=== PATIENT | female | born 1935 | race Caucasian/White ===

== ENCOUNTER 2022-02-02 15:38 | Inpatient (IN) | payer OTHER ==
[2022-02-02] MEDS ORDERED: SODIUM CHLORIDE 1,633 ML IV ONE (16:44)
[2022-02-02] MEDS ORDERED: ACETAMINOPHEN 1000 MG/100 ML BAG IVPB ONE (17:30)
[2022-02-02] MEDS ORDERED: VANCOMYCIN 1 GM in D5W (PRE-DOCKED) 1,000 MG/250 ML IVPB ONE (18:00)
[2022-02-02] MEDS ORDERED: PIPERACILLIN/TAZOB 4.5 GM 4.5 GM in DEXTROSE 5%-WATER 100 ML IVPB ONE (18:01)
[2022-02-02] MEDS ORDERED: ACETAMINOPHEN INJECTION 100 ML IVPB ONE (18:24)
[2022-02-02] MEDS ORDERED: VANCOMYCIN/WATER FOR INJ (PEG) 1,000 MG/200 ML BAG IVPB ONE (18:24)
[2022-02-02 18:26] LABS: HEMOGLOBIN 11.1 GM/dL (10.7-15.3); MCH 28.1 pg (25.7-33.7); MCHC 33.6 g/dl (32.0-36.0); MEAN CELL VOLUME 83.9 fl (80-96); MEAN PLT VOLUME 8.5 fl (7.5-11.1); PLATELET COUNT 380 10^3/uL (134-434); RBC 3.94 M/mm3 (3.60-5.2); RDW 18.1 % (11.6-15.6); WHITE BLOOD COUNT 3.7 K/mm3 (4.0-10.0)
[2022-02-02 18:35] LABS: INR 1.16 (0.83-1.09); PROTHROMBIN TIME (PATIENT) 13.4 SEC (9.7-13.0)
[2022-02-02 18:37] LABS: VENOUS BASE EXCESS -5.7 mmol/L (-2-2); VENOUS O2 SATURATION 56.3 % (70-80); VENOUS PCO2 35.8 mmHg (38-52); VENOUS PH 7.349 (7.310-7.410)
[2022-02-02 18:38] LABS: ACTIVATED PTT 28.7 SECONDS (25.2-36.5)
[2022-02-02 18:56] LABS: CALCIUM 8.2 mg/dL (8.5-10.1)
[2022-02-02 19:02] LABS: BILIRUBIN,TOTAL 0.8 mg/dL (0.2-1); TOT PROT 5.7 g/dl (6.4-8.2)
[2022-02-02] MEDS ORDERED: PIPERACILLIN/TAZOB 4.5 GM 4.5 GM/100 ML BAG IVPB ONE (19:17)
[2022-02-02 19:23] LABS: ANISOCYTOSIS 2+; MACROCYTOSIS 0; OVALOCYTE 1+
[2022-02-03] MEDS ORDERED: D5-1/2NS+20 MEQ KCL - 20 MEQ/1,000 ML INFUS.BAG IV SCH (03:45)
[2022-02-03] MEDS ORDERED: oxyCODONE HCL 5 MG TABLET PO PRN (03:55)
[2022-02-03] MEDS ORDERED: SENNOSIDES 8.6MG TABLET (FP) PO PRN (03:55)
[2022-02-03] MEDS ORDERED: POLYETHYLENE GLYCOL (HEALTHYLAX) 3350 17 GM PACKET PO PRN (03:55)
[2022-02-03] MEDS ORDERED: PIPERACILLIN/TAZOB 2.25 GM 2.25 GM in DEXTROSE 5%-WATER - 50 ML IVPB SCH (04:30)
[2022-02-03] MEDS ORDERED: METOPROLOL TARTRATE 25 MG TABLET (FP) ONE (04:35)
[2022-02-03] MEDS ORDERED: diphenhydrAMINE HCL 25 MG CAPSULE (FP) PO ONE (04:35)
[2022-02-03] MEDS ORDERED: PIPERACILLIN/TAZOB 2.25 GM 2.25 GM/50 ML BAG IVPB ONE (04:36)
[2022-02-03] MEDS ORDERED: VANCOMYCIN 500 MG in DEXTROSE 5%-WATER 100 ML IVPB SCH ×3 (04:45→23:45)
[2022-02-03] MEDS: METOPROLOL TARTRATE 25 MG TABLET (FP) PO SCH ×3 (05:04→22:11)
[2022-02-03] MEDS: PIPERACILLIN/TAZOB 2.25 GM 2.25 GM in DEXTROSE 5%-WATER - 50 ML IVPB SCH ×3 (05:04→17:54)
[2022-02-03 06:02] LABS: EPI CELLS >36 /uL (0-25.1); HYALINE CASTS 12 /uL (0-3.1); PH,URINE 5.5 (5.0-8.0); URINE APPEARANCE CLOUDY; URINE BACTERIA 135 /uL (0-1359); URINE BILIRUBIN NEGATIVE (NEGATIVE); URINE COLOR YELLOW; URINE GLUCOSE (UA) NEGATIVE (NEGATIVE); URINE KETONE NEGATIVE (NEGATIVE); URINE LEUK ESTERASE 1+ (NEGATIVE); URINE NITRITE NEGATIVE (NEGATIVE); URINE PROTEIN 1+ (NEGATIVE); URINE UROBILINOGEN 0.2 mg/dL (0.2-1.0); URINE WBC 399 /uL (0-25.8)
[2022-02-03 07:27] LABS: URINE RBC 773 /uL (0-23.9); YEAST NEGATIVE (NEGATIVE)
[2022-02-03] MEDS: DEXTROSE 5%-0.45% SALINE 1,000 ML IV SCH (10:07)
[2022-02-03] MEDS: diphenhydrAMINE HCL 25 MG CAPSULE (FP) PO SCH ×3 (10:09→22:12)
[2022-02-03] MEDS: HEPARIN NA (PORCINE) 5,000 UNITS/ML 1ML VIAL SQ SCH ×3 (10:09→22:11)
[2022-02-03] MEDS ORDERED: SODIUM CHLORIDE 1,000 ML IV SCH (11:30)
[2022-02-03] MEDS: COLLAGENASE CLOSTRIDIUM HIST. 30 GRAMS TUBE TP SCH (14:00)
[2022-02-03] MEDS ORDERED: VANCOMYCIN 1 GM in D5W (PRE-DOCKED) 1,000 MG/250 ML IVPB SCH (22:00)
[2022-02-03] MEDS: CEFEPIME 1 GM in DEXTROSE 5%-WATER 100 ML IVPB SCH (22:14)
[2022-02-04] MEDS: diphenhydrAMINE HCL 25 MG CAPSULE (FP) PO SCH ×3 (05:58→22:08)
[2022-02-04] MEDS: HEPARIN NA (PORCINE) 5,000 UNITS/ML 1ML VIAL SQ SCH ×3 (05:58→22:08)
[2022-02-04] MEDS: DEXTROSE 5%-0.45% SALINE 1,000 ML IV SCH (05:59)
[2022-02-04 07:40] LABS: HEMOGLOBIN 9.6 GM/dL (10.7-15.3); MCH 28.2 pg (25.7-33.7); MCHC 33.2 g/dl (32.0-36.0); MEAN CELL VOLUME 84.8 fl (80-96); MEAN PLT VOLUME 8.8 fl (7.5-11.1); PLATELET COUNT 258 10^3/uL (134-434); RBC 3.42 M/mm3 (3.60-5.2); RDW 18.4 % (11.6-15.6); WHITE BLOOD COUNT 5.1 K/mm3 (4.0-10.0)
[2022-02-04 08:03] LABS: BLOOD UREA NITROGEN 26.8 mg/dL (7-18); MAGNESIUM 1.7 mg/dL (1.8-2.4)
[2022-02-04 08:05] LABS: CREATININE 2.2 mg/dL (0.55-1.3); LACTIC ACID 2.1 mmol/L (0.4-2.0); PHOSPHOROUS 2.4 mg/dL (2.5-4.9)
[2022-02-04 08:07] LABS: BILIRUBIN,TOTAL 0.5 mg/dL (0.2-1); TOT PROT 4.4 g/dl (6.4-8.2)
[2022-02-04 08:08] LABS: ALBUMIN 1.6 g/dl (3.4-5.0)
[2022-02-04] MEDS: CEFEPIME 1 GM in DEXTROSE 5%-WATER 100 ML IVPB SCH (10:31)
[2022-02-04] MEDS ORDERED: CEFEPIME HCL 1 GM VIAL (RESTRICTED TO ID) ONE (10:33)
[2022-02-04] MEDS: METOPROLOL TARTRATE 25 MG TABLET (FP) PO SCH ×2 (10:34→22:08)
[2022-02-04 10:37] LABS: ANISOCYTOSIS 2+; MACROCYTOSIS 0; OVALOCYTE 2+; TOXIC GRANULATION 2+
[2022-02-04] MEDS: COLLAGENASE CLOSTRIDIUM HIST. 30 GRAMS TUBE TP SCH (10:38)
[2022-02-04] MEDS ORDERED: POTASSIUM CHLORIDE TABS 10 MEQ TABLET.ER (FP) PO ONE (14:01)
[2022-02-04] MEDS ORDERED: MAGNESIUM SULF 50% (8.12 MEQ/2 ML-1 GM VIAL) IVPB ONE (14:01)
[2022-02-05] MEDS: HEPARIN NA (PORCINE) 5,000 UNITS/ML 1ML VIAL SQ SCH ×3 (06:31→21:31)
[2022-02-05] MEDS: diphenhydrAMINE HCL 25 MG CAPSULE (FP) PO SCH ×3 (06:31→21:31)
[2022-02-05] MEDS: METOPROLOL TARTRATE 25 MG TABLET (FP) PO SCH ×3 (09:37→21:30)
[2022-02-05] MEDS: COLLAGENASE CLOSTRIDIUM HIST. 30 GRAMS TUBE TP SCH (09:37)
[2022-02-05] MEDS: DEXTROSE 5%-0.45% SALINE 1,000 ML IV SCH (09:39)
[2022-02-05] MEDS ORDERED: ACETAMINOPHEN 325 MG TABLET (FP) PO PRN (16:45)
[2022-02-05] MEDS ORDERED: ACETAMINOPHEN 325 MG TABLET (FP) ONE (17:08)
[2022-02-05] MEDS: AMINO ACIDS/PROTEIN HYDROLYS 30 ML LIQUID.PKT PO SCH (17:10)
[2022-02-06] MEDS: DEXTROSE 5%-0.45% SALINE 1,000 ML IV SCH ×2 (03:53→06:26)
[2022-02-06] MEDS: HEPARIN NA (PORCINE) 5,000 UNITS/ML 1ML VIAL SQ SCH ×3 (05:35→21:20)
[2022-02-06] MEDS: diphenhydrAMINE HCL 25 MG CAPSULE (FP) PO SCH ×3 (05:36→21:20)
[2022-02-06 08:09] LABS: BASO % 0.3 % (0-2.0); EOS % 10.9 % (0-4.5); HEMATOCRIT 29.6 % (32.4-45.2); HEMOGLOBIN 9.8 GM/dL (10.7-15.3); LYMPH % 9.6 % (8-40); MCH 27.4 pg (25.7-33.7); MCHC 32.9 g/dl (32.0-36.0); MEAN CELL VOLUME 83.3 fl (80-96); MEAN PLT VOLUME 9.1 fl (7.5-11.1); MONO % 9.6 % (3.8-10.2); NEUT % 69.6 % (42.8-82.8); PLATELET COUNT 251 10^3/uL (134-434); RBC 3.56 M/mm3 (3.60-5.2); RDW 18.7 % (11.6-15.6); WHITE BLOOD COUNT 9.7 K/mm3 (4.0-10.0)
[2022-02-06 08:39] LABS: CALCIUM 7.5 mg/dL (8.5-10.1)
[2022-02-06 08:40] LABS: BLOOD UREA NITROGEN 32.2 mg/dL (7-18)
[2022-02-06 08:47] LABS: CREATININE 2.7 mg/dL (0.55-1.3)
[2022-02-06] MEDS: ASCORBIC ACID 500 MG TABLET (FP) GT SCH (10:34)
[2022-02-06] MEDS: COLLAGENASE CLOSTRIDIUM HIST. 30 GRAMS TUBE TP SCH (10:34)
[2022-02-06] MEDS: MULTIVITAMINS (DAILY MVI) TABLET (FP) PO SCH (10:34)
[2022-02-06] MEDS: METOPROLOL TARTRATE 25 MG TABLET (FP) PO SCH ×2 (10:34→21:20)
[2022-02-06] MEDS: AMINO ACIDS/PROTEIN HYDROLYS 30 ML LIQUID.PKT PO SCH ×2 (10:34→17:57)
[2022-02-06] MEDS ORDERED: POTASSIUM CHLORIDE TABS 20 MEQ TABLET.ER (FP) PO ONE (12:13)
[2022-02-06] MEDS ORDERED: DEXTROSE 5%-0.45% SALINE 1,000 ML IV SCH (12:14)
[2022-02-06] MEDS: DEXTROSE 5%-NORMAL SALINE 1,000 ML IV SCH (13:31)
[2022-02-07] MEDS: diphenhydrAMINE HCL 25 MG CAPSULE (FP) PO SCH ×3 (06:32→21:19)
[2022-02-07] MEDS: HEPARIN NA (PORCINE) 5,000 UNITS/ML 1ML VIAL SQ SCH ×3 (06:32→21:19)
[2022-02-07 07:42] LABS: BASO % 0.7 % (0-2.0); EOS % 7.7 % (0-4.5); HEMATOCRIT 30.7 % (32.4-45.2); HEMOGLOBIN 10.2 GM/dL (10.7-15.3); LYMPH % 11.3 % (8-40); MCH 27.4 pg (25.7-33.7); MCHC 33.1 g/dl (32.0-36.0); MEAN CELL VOLUME 82.8 fl (80-96); MEAN PLT VOLUME 9.4 fl (7.5-11.1); MONO % 8.2 % (3.8-10.2); NEUT % 72.1 % (42.8-82.8); PLATELET COUNT 272 10^3/uL (134-434); RDW 18.6 % (11.6-15.6); WHITE BLOOD COUNT 12.6 K/mm3 (4.0-10.0)
[2022-02-07 08:04] LABS: ALBUMIN 1.6 g/dl (3.4-5.0); BLOOD UREA NITROGEN 36.3 mg/dL (7-18); CALCIUM 7.5 mg/dL (8.5-10.1)
[2022-02-07 08:07] LABS: CREATININE 2.9 mg/dL (0.55-1.3)
[2022-02-07 08:09] LABS: BILIRUBIN,TOTAL 0.4 mg/dL (0.2-1); TOT PROT 4.4 g/dl (6.4-8.2)
[2022-02-07] MEDS: METOPROLOL TARTRATE 25 MG TABLET (FP) PO SCH ×2 (09:41→21:19)
[2022-02-07] MEDS: COLLAGENASE CLOSTRIDIUM HIST. 30 GRAMS TUBE TP SCH (09:41)
[2022-02-07] MEDS: MULTIVITAMINS (DAILY MVI) TABLET (FP) PO SCH (09:41)
[2022-02-07] MEDS: ASCORBIC ACID 500 MG TABLET (FP) GT SCH (09:41)
[2022-02-07] MEDS: AMINO ACIDS/PROTEIN HYDROLYS 30 ML LIQUID.PKT PO SCH ×2 (09:41→17:23)
[2022-02-07] MEDS: TAMSULOSIN HCL 0.4 MG CAP PO SCH (13:25)
[2022-02-07] MEDS: DEXTROSE 5%-NORMAL SALINE 1,000 ML IV SCH (13:30)
[2022-02-08] MEDS: HEPARIN NA (PORCINE) 5,000 UNITS/ML 1ML VIAL SQ SCH ×4 (06:19→21:48)
[2022-02-08] MEDS: diphenhydrAMINE HCL 25 MG CAPSULE (FP) PO SCH ×4 (06:51→21:48)
[2022-02-08] MEDS: METOPROLOL TARTRATE 25 MG TABLET (FP) PO SCH ×2 (09:21→21:48)
[2022-02-08] MEDS: COLLAGENASE CLOSTRIDIUM HIST. 30 GRAMS TUBE TP SCH (09:21)
[2022-02-08] MEDS: AMINO ACIDS/PROTEIN HYDROLYS 30 ML LIQUID.PKT PO SCH ×2 (09:21→17:06)
[2022-02-08] MEDS: TAMSULOSIN HCL 0.4 MG CAP PO SCH (09:21)
[2022-02-08] MEDS: ASCORBIC ACID 500 MG TABLET (FP) GT SCH (09:21)
[2022-02-08] MEDS: MULTIVITAMINS (DAILY MVI) TABLET (FP) PO SCH (09:21)
[2022-02-08] MEDS: DEXTROSE 5%-NORMAL SALINE 1,000 ML IV SCH (15:04)
[2022-02-08 15:58] LABS: BLOOD UREA NITROGEN 37.1 mg/dL (7-18); CALCIUM 7.4 mg/dL (8.5-10.1)
[2022-02-08 16:01] LABS: CREATININE 2.9 mg/dL (0.55-1.3)
[2022-02-09] MEDS: HEPARIN NA (PORCINE) 5,000 UNITS/ML 1ML VIAL SQ SCH ×3 (06:01→22:41)
[2022-02-09] MEDS: diphenhydrAMINE HCL 25 MG CAPSULE (FP) PO SCH ×3 (06:01→22:43)
[2022-02-09] MEDS: DEXTROSE 5%-NORMAL SALINE 1,000 ML IV SCH ×2 (06:02→13:43)
[2022-02-09] MEDS: METOPROLOL TARTRATE 25 MG TABLET (FP) PO SCH ×2 (11:47→22:42)
[2022-02-09] MEDS: TAMSULOSIN HCL 0.4 MG CAP PO SCH (11:47)
[2022-02-09] MEDS: MULTIVITAMINS (DAILY MVI) TABLET (FP) PO SCH (11:47)
[2022-02-09] MEDS: ASCORBIC ACID 500 MG TABLET (FP) GT SCH (11:47)
[2022-02-09] MEDS: COLLAGENASE CLOSTRIDIUM HIST. 30 GRAMS TUBE TP SCH (11:47)
[2022-02-09] MEDS: AMINO ACIDS/PROTEIN HYDROLYS 30 ML LIQUID.PKT PO SCH ×2 (11:48→18:30)
[2022-02-09] MEDS: SODIUM BICARBONATE 650 MG TABLET PO SCH (18:30)
[2022-02-10] MEDS: diphenhydrAMINE HCL 25 MG CAPSULE (FP) PO SCH (06:32)
[2022-02-10] MEDS: TAMSULOSIN HCL 0.4 MG CAP PO SCH (08:30)
[2022-02-10] MEDS: AMINO ACIDS/PROTEIN HYDROLYS 30 ML LIQUID.PKT PO SCH (08:30)
[2022-02-10 10:42] VITALS: BP 121/65; PULSE 109; RESP 18; TEMP 97.9
[2022-02-10] MEDS: METOPROLOL TARTRATE 25 MG TABLET (FP) PO SCH (10:44)
[2022-02-10] MEDS: ASCORBIC ACID 500 MG TABLET (FP) GT SCH (10:44)
[2022-02-10] MEDS: SODIUM BICARBONATE 650 MG TABLET PO SCH (10:45)
[2022-02-10] MEDS: MULTIVITAMINS (DAILY MVI) TABLET (FP) PO SCH (10:45)
[2022-02-10] MEDS: COLLAGENASE CLOSTRIDIUM HIST. 30 GRAMS TUBE TP SCH (12:41)
== END 2022-02-10 14:22 | DRG 539 ==
LOC: JER 15:38 → JERBED 02-03 00:05 → J4W 02-03 07:26
PROVIDERS: ADMIT Internal Medicine; ATTEND Family Medicine
DX: M46.28 Osteomyelitis of vertebra, sacral and sacrococcygeal region (principal); L89.154 Pressure ulcer of sacral region, stage 4; N18.6 End stage renal disease; E87.2 Acidosis; I24.8 Other forms of acute ischemic heart disease; N39.0 Urinary tract infection, site not specified; I12.0 Hypertensive chronic kidney disease with stage 5 chronic kidney disease or end stage renal disease; N17.9 Acute kidney failure, unspecified; N13.30 Unspecified hydronephrosis; N20.1 Calculus of ureter; D72.12 Drug rash with eosinophilia and systemic symptoms syndrome; F03.90 Unspecified dementia, unspecified severity, without behavioral disturbance, psychotic disturbance, mood disturbance, and anxiety; E11.69 Type 2 diabetes mellitus with other specified complication; E11.622 Type 2 diabetes mellitus with other skin ulcer; E11.22 Type 2 diabetes mellitus with diabetic chronic kidney disease; D64.9 Anemia, unspecified; I48.91 Unspecified atrial fibrillation; T50.905A Adverse effect of unspecified drugs, medicaments and biological substances, initial encounter; Y92.89 Other specified places as the place of occurrence of the external cause; N18.9 Chronic kidney disease, unspecified
CPT/HCPCS: 36415; 71045-TC-FY; 72192-TC; 73560-TC-RT-FY; 73590-TC-RT-FY; 74176-TC; 76775-TC; 80048; 80053; 81003; 82550; 82553; 82803; 83605; 83735; 84100; 84484; 84550; 85025; 85610; 85730; 86850; 86900; 86901; 87040; 87086; 93005; 93010; 97162-GP; 99291; C9803-CS; E0372; J1644; U0003; U0005

== ENCOUNTER 2022-03-30 14:19 | Inpatient (IN) | payer OTHER ==
[2022-03-30 15:12] LABS: BASO % 0.6 % (0-2.0); EOS % 0.8 % (0-4.5); HEMATOCRIT 33.5 % (32.4-45.2); HEMOGLOBIN 10.5 GM/dL (10.7-15.3); LYMPH % 15.3 % (8-40); MCH 27.4 pg (25.7-33.7); MCHC 31.5 g/dl (32.0-36.0); MEAN PLT VOLUME 8.2 fl (7.5-11.1); MONO % 6.5 % (3.8-10.2); NEUT % 76.8 % (42.8-82.8); PLATELET COUNT 420 10^3/uL (134-434); RBC 3.85 M/mm3 (3.60-5.2); RDW 15.8 % (11.6-15.6); WHITE BLOOD COUNT 13.9 K/mm3 (4.0-10.0)
[2022-03-30] MEDS ORDERED: SODIUM CHLORIDE 0.9% 500 ML INFUS.BAG IV ONE ×2 (15:12→16:23)
[2022-03-30 15:15] LABS: EPI CELLS >36 /uL (0-25.1); HYALINE CASTS 2 /uL (0-3.1); URINE APPEARANCE CLEAR; URINE BACTERIA 34 /uL (0-1359); URINE BILIRUBIN NEGATIVE (NEGATIVE); URINE COLOR YELLOW; URINE GLUCOSE (UA) NEGATIVE (NEGATIVE); URINE KETONE NEGATIVE (NEGATIVE); URINE LEUK ESTERASE NEGATIVE (NEGATIVE); URINE NITRITE NEGATIVE (NEGATIVE); URINE PROTEIN 1+ (NEGATIVE); URINE RBC 17 /uL (0-23.9); URINE UROBILINOGEN 0.2 mg/dL (0.2-1.0); URINE WBC 40 /uL (0-25.8)
[2022-03-30 15:22] LABS: INR 1.15 (0.83-1.09); PROTHROMBIN TIME (PATIENT) 13.2 SEC (9.7-13.0)
[2022-03-30 15:24] LABS: ACTIVATED PTT 26.9 SECONDS (25.2-36.5)
[2022-03-30 15:31] LABS: VENOUS O2 SATURATION 21.2 % (70-80); VENOUS PCO2 35.9 mmHg (38-52); VENOUS PH 7.426 (7.310-7.410)
[2022-03-30 15:42] LABS: LACTIC ACID 3.6 mmol/L (0.4-2.0)
[2022-03-30] MEDS ORDERED: VANCOMYCIN 1 GM in D5W (PRE-DOCKED) 1,000 MG/250 ML IVPB ONE (15:51)
[2022-03-30] MEDS ORDERED: PIPERACILLIN/TAZOB 3.375 GM 3.375 GM in DEXTROSE 5%-WATER - 50 ML IVPB ONE (15:51)
[2022-03-30 16:07] LABS: BLOOD UREA NITROGEN 33.7 mg/dL (7-18); CALCIUM 8.7 mg/dL (8.5-10.1)
[2022-03-30 16:09] LABS: CREATININE 1.3 mg/dL (0.55-1.3)
[2022-03-30] MEDS ORDERED: PIPERACILLIN/TAZOB 3.375 GM 3.375 GM/50 ML BAG IVPB ONE (16:09)
[2022-03-30] MEDS ORDERED: VANCOMYCIN/WATER FOR INJ (PEG) 1,000 MG/200 ML BAG IVPB ONE (16:09)
[2022-03-30 16:12] LABS: BILIRUBIN,TOTAL 0.4 mg/dL (0.2-1); TOT PROT 6.2 g/dl (6.4-8.2)
[2022-03-30 22:14] LABS: LACTIC ACID 2.2 mmol/L (0.4-2.0)
[2022-03-31] MEDS: PIPERACILLIN/TAZOB 2.25 GM 2.25 GM in DEXTROSE 5%-WATER - 50 ML IVPB SCH ×4 (02:00→15:13)
[2022-03-31] MEDS ORDERED: SODIUM CHLORIDE 500 ML IV STA (02:46)
[2022-03-31 03:52] VITALS: RESP 20
[2022-03-31 04:22] VITALS: BMI 21.8
[2022-03-31] MEDS ORDERED: POLYETHYLENE GLYCOL (HEALTHYLAX) 3350 17 GM PACKET PO PRN (05:08)
[2022-03-31] MEDS ORDERED: oxyCODONE HCL 5 MG TABLET PO PRN (05:08)
[2022-03-31] MEDS ORDERED: SENNOSIDES 8.6MG TABLET (FP) PO PRN (05:08)
[2022-03-31] MEDS ORDERED: ACETAMINOPHEN 1000 MG/100 ML BAG IVPB ONE (06:37)
[2022-03-31] MEDS: AMINO ACIDS/PROTEIN HYDROLYS 30 ML LIQUID.PKT PO SCH ×3 (09:02→17:40)
[2022-03-31] MEDS: TAMSULOSIN HCL 0.4 MG CAP PO SCH (09:03)
[2022-03-31 09:43] LABS: BLOOD UREA NITROGEN 29.6 mg/dL (7-18)
[2022-03-31 09:44] LABS: CALCIUM 8.1 mg/dL (8.5-10.1)
[2022-03-31 09:46] LABS: CREATININE 1.2 mg/dL (0.55-1.3)
[2022-03-31 09:50] LABS: BASO % 0.6 % (0-2.0); EOS % 1.9 % (0-4.5); HEMATOCRIT 28.8 % (32.4-45.2); HEMOGLOBIN 9.2 GM/dL (10.7-15.3); LYMPH % 4.2 % (8-40); MCH 27.9 pg (25.7-33.7); MCHC 31.8 g/dl (32.0-36.0); MEAN CELL VOLUME 87.7 fl (80-96); MEAN PLT VOLUME 8.7 fl (7.5-11.1); MONO % 2.7 % (3.8-10.2); NEUT % 90.6 % (42.8-82.8); PLATELET COUNT 313 10^3/uL (134-434); RBC 3.28 M/mm3 (3.60-5.2); RDW 15.8 % (11.6-15.6); WHITE BLOOD COUNT 12.8 K/mm3 (4.0-10.0)
[2022-03-31] MEDS ORDERED: SODIUM CHLORIDE 250 ML IV STA (10:56)
[2022-03-31] MEDS ORDERED: SODIUM CHLORIDE 250 ML IV ONE (11:00)
[2022-03-31] MEDS ORDERED: SODIUM CHLORIDE 1,000 ML IV SCH (11:00)
[2022-03-31] MEDS: METOPROLOL TARTRATE 25 MG TABLET (FP) PO SCH ×2 (11:18→22:26)
[2022-03-31] MEDS: MIRTAZAPINE 15 MG TABLET (FP) PO SCH (11:42)
[2022-03-31] MEDS: MULTIVITAMINS (DAILY MVI) TABLET (FP) PO SCH (11:42)
[2022-03-31] MEDS: ASCORBIC ACID 500 MG TABLET (FP) GT SCH (11:43)
[2022-03-31] MEDS ORDERED: VANCOMYCIN 1 GM in D5W (PRE-DOCKED) 1,000 MG/250 ML IVPB SCH (14:00)
[2022-03-31] MEDS: HEPARIN NA (PORCINE) 5,000 UNITS/ML 1ML VIAL SQ SCH ×2 (14:06→22:28)
[2022-03-31] MEDS ORDERED: VANCOMYCIN/WATER FOR INJ (PEG) 1,000 MG/200 ML BAG IVPB SCH (17:00)
[2022-03-31] MEDS ORDERED: VANCOMYCIN 1 GM/200 ML PREMIX BAG IVPB SCH (18:00)
[2022-03-31] MEDS: PIPERACILLIN/TAZOB 3.375 GM 3.375 GM in DEXTROSE 5%-WATER - 50 ML IVPB SCH (18:42)
[2022-03-31] MEDS ORDERED: MENTHOL/PHENOL 1 EACH UD MM PRN (19:54)
[2022-03-31] MEDS ORDERED: ACETAMINOPHEN 325 MG TABLET (FP) PO ONE (20:33)
[2022-04-01] MEDS: PIPERACILLIN/TAZOB 3.375 GM 3.375 GM in DEXTROSE 5%-WATER - 50 ML IVPB SCH ×3 (02:07→17:47)
[2022-04-01] MEDS: SODIUM CHLORIDE 0.45% 1,000 ML IV SCH ×3 (05:40→21:37)
[2022-04-01] MEDS: HEPARIN NA (PORCINE) 5,000 UNITS/ML 1ML VIAL SQ SCH ×3 (05:40→21:38)
[2022-04-01 09:09] LABS: HEMATOCRIT 31.1 % (32.4-45.2); HEMOGLOBIN 9.6 GM/dL (10.7-15.3); MCH 28.2 pg (25.7-33.7); MEAN PLT VOLUME 8.4 fl (7.5-11.1); PLATELET COUNT 243 10^3/uL (134-434); RBC 3.42 M/mm3 (3.60-5.2); RDW 16.4 % (11.6-15.6); WHITE BLOOD COUNT 10.4 K/mm3 (4.0-10.0)
[2022-04-01 09:34] LABS: BLOOD UREA NITROGEN 33.8 mg/dL (7-18); CALCIUM 7.8 mg/dL (8.5-10.1)
[2022-04-01 09:36] LABS: CREATININE 1.6 mg/dL (0.55-1.3)
[2022-04-01 09:38] LABS: BILIRUBIN,TOTAL 0.4 mg/dL (0.2-1); TOT PROT 4.7 g/dl (6.4-8.2)
[2022-04-01 09:41] LABS: ALBUMIN 1.5 g/dl (3.4-5.0)
[2022-04-01] MEDS: MULTIVITAMINS (DAILY MVI) TABLET (FP) PO SCH (11:10)
[2022-04-01] MEDS: MIRTAZAPINE 15 MG TABLET (FP) PO SCH (11:10)
[2022-04-01] MEDS: ASCORBIC ACID 500 MG TABLET (FP) GT SCH (11:10)
[2022-04-01] MEDS: TAMSULOSIN HCL 0.4 MG CAP PO SCH (11:10)
[2022-04-01] MEDS: METOPROLOL TARTRATE 25 MG TABLET (FP) PO SCH ×2 (11:11→12:48)
[2022-04-01] MEDS: AMINO ACIDS/PROTEIN HYDROLYS 30 ML LIQUID.PKT PO SCH ×3 (11:13→17:47)
[2022-04-01] MEDS: ZINC SULFATE 220 MG CAPSULE (FP) PO SCH (11:13)
[2022-04-01] MEDS: MIDODRINE HCL 2.5 MG TABLET PO SCH ×2 (15:36→17:47)
[2022-04-02] MEDS: PIPERACILLIN/TAZOB 3.375 GM 3.375 GM in DEXTROSE 5%-WATER - 50 ML IVPB SCH ×3 (02:04→17:15)
[2022-04-02] MEDS: HEPARIN NA (PORCINE) 5,000 UNITS/ML 1ML VIAL SQ SCH ×3 (05:44→21:49)
[2022-04-02] MEDS: SODIUM CHLORIDE 0.45% 1,000 ML IV SCH ×3 (09:14→21:50)
[2022-04-02] MEDS: MULTIVITAMINS (DAILY MVI) TABLET (FP) PO SCH (09:15)
[2022-04-02] MEDS: MIRTAZAPINE 15 MG TABLET (FP) PO SCH (09:15)
[2022-04-02] MEDS: MIDODRINE HCL 2.5 MG TABLET PO SCH ×3 (09:15→17:15)
[2022-04-02] MEDS: ASCORBIC ACID 500 MG TABLET (FP) GT SCH (09:15)
[2022-04-02] MEDS: ZINC SULFATE 220 MG CAPSULE (FP) PO SCH (09:15)
[2022-04-02] MEDS: AMINO ACIDS/PROTEIN HYDROLYS 30 ML LIQUID.PKT PO SCH ×2 (09:16→17:15)
[2022-04-03] MEDS: PIPERACILLIN/TAZOB 3.375 GM 3.375 GM in DEXTROSE 5%-WATER - 50 ML IVPB SCH ×3 (01:30→17:01)
[2022-04-03] MEDS: HEPARIN NA (PORCINE) 5,000 UNITS/ML 1ML VIAL SQ SCH ×3 (05:34→21:59)
[2022-04-03] MEDS: MIRTAZAPINE 15 MG TABLET (FP) PO SCH (09:35)
[2022-04-03] MEDS: ASCORBIC ACID 500 MG TABLET (FP) GT SCH (09:35)
[2022-04-03] MEDS: MIDODRINE HCL 2.5 MG TABLET PO SCH ×3 (09:35→17:01)
[2022-04-03] MEDS: AMINO ACIDS/PROTEIN HYDROLYS 30 ML LIQUID.PKT PO SCH ×2 (09:36→17:01)
[2022-04-03] MEDS: ZINC SULFATE 220 MG CAPSULE (FP) PO SCH (09:36)
[2022-04-03] MEDS: MULTIVITAMINS (DAILY MVI) TABLET (FP) PO SCH (09:36)
[2022-04-03] MEDS: SODIUM CHLORIDE 0.45% 1,000 ML IV SCH ×3 (09:39→22:00)
[2022-04-03] MEDS: SODIUM HYPOCHLORITE 0.25%- 473 ML BULK BOTTLE TP SCH (17:56)
[2022-04-04] MEDS: PIPERACILLIN/TAZOB 3.375 GM 3.375 GM in DEXTROSE 5%-WATER - 50 ML IVPB SCH ×2 (01:27→09:01)
[2022-04-04] MEDS: HEPARIN NA (PORCINE) 5,000 UNITS/ML 1ML VIAL SQ SCH ×3 (06:22→21:46)
[2022-04-04] MEDS: AMINO ACIDS/PROTEIN HYDROLYS 30 ML LIQUID.PKT PO SCH ×2 (09:00→17:28)
[2022-04-04] MEDS: MULTIVITAMINS (DAILY MVI) TABLET (FP) PO SCH (09:01)
[2022-04-04] MEDS: ZINC SULFATE 220 MG CAPSULE (FP) PO SCH (09:01)
[2022-04-04] MEDS: MIDODRINE HCL 2.5 MG TABLET PO SCH ×3 (09:01→17:28)
[2022-04-04] MEDS: MIRTAZAPINE 15 MG TABLET (FP) PO SCH (09:01)
[2022-04-04] MEDS: ASCORBIC ACID 500 MG TABLET (FP) GT SCH (09:02)
[2022-04-04 09:15] LABS: HEMATOCRIT 26.7 % (32.4-45.2); HEMOGLOBIN 8.5 GM/dL (10.7-15.3); MCH 27.8 pg (25.7-33.7); MCHC 31.9 g/dl (32.0-36.0); MEAN CELL VOLUME 87.4 fl (80-96); MEAN PLT VOLUME 8.7 fl (7.5-11.1); PLATELET COUNT 127 10^3/uL (134-434); RBC 3.05 M/mm3 (3.60-5.2); RDW 15.6 % (11.6-15.6); WHITE BLOOD COUNT 8.4 K/mm3 (4.0-10.0)
[2022-04-04 09:37] LABS: BLOOD UREA NITROGEN 42.6 mg/dL (7-18); CALCIUM 7.4 mg/dL (8.5-10.1)
[2022-04-04 09:38] LABS: ALBUMIN 1.4 g/dl (3.4-5.0); MAGNESIUM 1.6 mg/dL (1.8-2.4)
[2022-04-04 09:40] LABS: CREATININE 2.1 mg/dL (0.55-1.3); PHOSPHOROUS 4.3 mg/dL (2.5-4.9)
[2022-04-04 09:41] LABS: BILIRUBIN,TOTAL 0.3 mg/dL (0.2-1); TOT PROT 4.5 g/dl (6.4-8.2)
[2022-04-04] MEDS ORDERED: SODIUM HYPOCHLORITE 0.25%- 473 ML BULK BOTTLE TP SCH (10:00)
[2022-04-04] MEDS: SODIUM CHLORIDE 0.45% 1,000 ML IV SCH ×2 (11:02→17:29)
[2022-04-04] MEDS ORDERED: POTASSIUM CHLORIDE TABS 20 MEQ TABLET.ER (FP) PO ONE (12:52)
[2022-04-04] MEDS ORDERED: MAGNESIUM OXIDE 400 MG TABLET (FP) PO ONE (12:52)
[2022-04-04] MEDS: SODIUM HYPOCHLORITE 0.25%- 473 ML BULK BOTTLE TP SCH (14:42)
[2022-04-05] MEDS: SODIUM CHLORIDE 0.45% 1,000 ML IV SCH (01:39)
[2022-04-05] MEDS: HEPARIN NA (PORCINE) 5,000 UNITS/ML 1ML VIAL SQ SCH ×2 (05:41→14:15)
[2022-04-05] MEDS: AMINO ACIDS/PROTEIN HYDROLYS 30 ML LIQUID.PKT PO SCH ×2 (10:28→18:32)
[2022-04-05] MEDS: SODIUM HYPOCHLORITE 0.25%- 473 ML BULK BOTTLE TP SCH (10:29)
[2022-04-05] MEDS: MIDODRINE HCL 2.5 MG TABLET PO SCH ×2 (10:30→14:15)
[2022-04-05] MEDS: ZINC SULFATE 220 MG CAPSULE (FP) PO SCH (10:31)
[2022-04-05] MEDS: MIRTAZAPINE 15 MG TABLET (FP) PO SCH (10:32)
[2022-04-05] MEDS: MULTIVITAMINS (DAILY MVI) TABLET (FP) PO SCH (10:33)
[2022-04-05] MEDS: metroNIDAZOLE 250 MG TABLET PO SCH ×2 (10:33→14:15)
[2022-04-05] MEDS: ASCORBIC ACID 500 MG TABLET (FP) GT SCH (10:33)
[2022-04-05 14:47] VITALS: BP 94/40; PULSE 112; TEMP 98.9
== END 2022-04-05 17:50 | DRG 871 ==
LOC: JER 14:19 → JERBED 16:03 → J7W 03-31 01:15
PROVIDERS: ADMIT Family Medicine; ATTEND Family Medicine
DX: A41.9 Sepsis, unspecified organism (principal); J18.9 Pneumonia, unspecified organism; L89.153 Pressure ulcer of sacral region, stage 3; M46.28 Osteomyelitis of vertebra, sacral and sacrococcygeal region; E87.0 Hyperosmolality and hypernatremia; R50.9 Fever, unspecified; R00.0 Tachycardia, unspecified; R44.3 Hallucinations, unspecified; D61.818 Other pancytopenia; E87.20 Acidosis, unspecified; N17.9 Acute kidney failure, unspecified; D72.829 Elevated white blood cell count, unspecified; I12.9 Hypertensive chronic kidney disease with stage 1 through stage 4 chronic kidney disease, or unspecified chronic kidney disease; E11.22 Type 2 diabetes mellitus with diabetic chronic kidney disease; N18.9 Chronic kidney disease, unspecified; D63.1 Anemia in chronic kidney disease; E60 Dietary zinc deficiency; M16.0 Bilateral primary osteoarthritis of hip; E54 Ascorbic acid deficiency; K59.00 Constipation, unspecified; L89.626 Pressure-induced deep tissue damage of left heel; L89.616 Pressure-induced deep tissue damage of right heel; I48.91 Unspecified atrial fibrillation
CPT/HCPCS: 0241U-QW; 36415; 70450-TC; 71045-TC-FY; 76775-TC; 80048; 80053; 81003; 82140; 82550; 82553; 82803; 82962; 83605; 83735; 84100; 84439; 84443; 84484; 85025; 85027; 85610; 85730; 86850; 86900; 86901; 87040; 87070; 87076; 87086; 87186; 87205; 93005; 93010; 97116-GP; 97161-GP; 99285-25; C9803-CS; E0372; J1644; U0003; U0005